=== PATIENT | female | born 1980 | race Caucasian/White ===

== ENCOUNTER 2019-09-25 10:03 | Emergency (ER) | payer MEDICAID ==
[~2019-09-25] VITALS: Ht 152.4 cm; Wt 63.6 kg
[2019-09-25 10:32] VITALS: BP 121/72
[2019-09-25] MEDS ORDERED: ACETAMINOPHEN 500 MG TABLET PO ONE (11:00)
== END 2019-09-25 12:16 | disposition home or self-care (01) ==
LOC: EMS 10:05
DX: S16.1XXA Strain of muscle, fascia and tendon at neck level, initial encounter (principal); S09.90XA Unspecified injury of head, initial encounter; V49.9XXA Car occupant (driver) (passenger) injured in unspecified traffic accident, initial encounter; Y93.89 Activity, other specified; Y92.488 Other paved roadways as the place of occurrence of the external cause; Y99.8 Other external cause status